=== PATIENT | female | born 1970 | race Hispanic/Latino ===

== ENCOUNTER → 2023-10-06 | Outpatient (CLI) | payer BC | END | disposition home or self-care (01) | LOC: RAH 10:39 | PROVIDERS: ATTEND Family Medicine | DX: N28.1 Cyst of kidney, acquired (principal); N18.2 Chronic kidney disease, stage 2 (mild) | CPT/HCPCS: 76770 ==

== ENCOUNTER → 2025-04-12 | Outpatient (CLI) | payer BC | END | disposition home or self-care (01) | LOC: RAH 09:55 | PROVIDERS: ATTEND Family Medicine | DX: Z12.31 Encounter for screening mammogram for malignant neoplasm of breast (principal) | CPT/HCPCS: 77067 ==